=== PATIENT | female | born 1990 | race African-American/Black ===

== ENCOUNTER 2022-01-12 07:25 | Outpatient (CLI) | payer BC | END 2022-01-12 07:26 | disposition home or self-care (01) | LOC: CSHLAB 07:25 | PROVIDERS: ATTEND Nurse Practitioner Family | DX: Z20.822 Contact with and (suspected) exposure to COVID-19 (principal) | CPT/HCPCS: U0003; U0005 ==

== ENCOUNTER 2022-01-16 07:24 | Outpatient (CLI) | payer BC | END 2022-01-16 07:25 | disposition home or self-care (01) | LOC: CSHRAD 07:24 | PROVIDERS: ATTEND Nurse Practitioner Family | DX: K21.9 Gastro-esophageal reflux disease without esophagitis (principal); M41.84 Other forms of scoliosis, thoracic region | CPT/HCPCS: 74246 ==